=== PATIENT | male | born 1980 | race African-American/Black ===

== ENCOUNTER 2021-01-28 12:31 | Emergency (ER) | payer OTHER ==
[~2021-01-28] VITALS: Ht 182.9 cm; Wt 82.6 kg
--- NOTE | 2021-01-28 14:06 | REP ---
INDICATION: swelling/pain. COMPARISON: None. TECHNIQUE: Multiple ultrasonographic images of the deep venous structures of the left thigh were obtained from the common femoral vein to the popliteal vein along with Doppler interrogation and color flow Doppler images. FINDINGS: There is no abnormal echogenic material seen within any of the visualized deep venous structures that would suggest acute thrombosis. Coaptation is unremarkable throughout. Doppler interrogation shows an expected response to respiratory variability and augmentation. The color flow images show what appears to be a normal vascular pattern throughout. In the posterior popliteal fossa there is an 8.2 x 1.4 x 2 point 9 cm sized mixed echo structure IMPRESSION: There is no ultrasonographic evidence of deep venous thrombosis involving any of the visualized deep venous structures of the left thigh, as described above. 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 <Electronically signed by Abdiaziz Bolanos > 01/28/21 [id number]
[2021-01-28 14:17] VITALS: BP 131/89
== END 2021-01-28 14:19 | disposition home or self-care (01) ==
LOC: M ED 12:31
DX: M71.22 Synovial cyst of popliteal space [Baker], left knee (principal); F17.210 Nicotine dependence, cigarettes, uncomplicated

== ENCOUNTER 2021-02-05 17:54 | Inpatient (IN) | payer OTHER ==
[~2021-02-05] VITALS: Ht 182.9 cm; Wt 78.6 kg
[2021-02-05] MEDS ORDERED: NS 1,000 ML IV ONE (19:50)
[2021-02-05] MEDS ORDERED: MORPHINE 4 MG/ML 1ML VIAL/SYRINGE (J2270) IV ONE (19:55)
[2021-02-05] MEDS ORDERED: ONDANSETRON 4MG/2ML VIAL IV ONE (19:55)
[2021-02-05 20:55] LABS: BASO % 0.3 % (0.0-1.0); HEMATOCRIT 44.3 % (42.0-52.0); HEMOGLOBIN 14.4 g/dl (13.5-17.5); LYMPH # 0.7 10^3/uL (1.5-5.0); LYMPH % 6.5 % (24.0-44.0); MEAN CORPUSCULAR HEMOGLOBIN 29.4 pg (27.0-33.0); MEAN CORPUSCULAR HGB CONC 32.5 g/dl (32.0-36.5); MEAN CORPUSCULAR VOLUME 90.4 fl (80.0-96.0); MONO # 0.7 10^3/uL (0.0-0.8); MONO % 6.3 % (2.0-8.0); NEUTROPHILS # 9.3 10^3/uL (1.5-8.5); NEUTROPHILS % 86.5 % (36.0-66.0); PLATELET COUNT, AUTOMATED 269 10^3/uL (150-450); WHITE BLOOD COUNT 10.8 10^3/uL (4.0-10.0)
--- NOTE | 2021-02-05 21:00 | REPVR ---
PROCEDURE INFORMATION: Exam: XR Chest Exam date and time: 02/05/2021 8:29 PM Age: 40 years old Clinical indication: Other: Back pain TECHNIQUE: Imaging protocol: XR of the chest. Views: 1 view. COMPARISON: No relevant prior studies available. FINDINGS: Lungs: Unremarkable. No consolidation. Pleural spaces: Unremarkable. No pleural effusion. No pneumothorax. Heart/Mediastinum: Unremarkable. No cardiomegaly. Bones/joints: Unremarkable. IMPRESSION: No acute findings. Electronically signed by: Larry Heaton On 02/05/2021 21:00:33 PM
--- NOTE | 2021-02-05 21:03 | REPVR ---
PROCEDURE INFORMATION: Exam: CT Abdomen And Pelvis Without Contrast Exam date and time: 02/05/2021 8:32 PM Age: 40 years old Clinical indication: Abdominal pain; Additional info: Diffuse back pain, L flank pain, lumbar vertebral ttp TECHNIQUE: Imaging protocol: Computed tomography of the abdomen and pelvis without contrast. Radiation optimization: All CT scans at this facility use at least one of these dose optimization techniques: automated exposure control; mA and/or kV adjustment per patient size (includes targeted exams where dose is matched to clinical indication); or iterative reconstruction. COMPARISON: No relevant prior studies available. FINDINGS: Liver: There is a diffuse decrease in hepatic parenchymal density, consistent with steatosis. Hepatomegaly. Acute steatohepatitis not excluded. Gallbladder and bile ducts: Sludge filled gallbladder. Pancreas: There is peripancreatic inflammatory stranding and fluid, consistent with acute pancreatitis. Spleen: Normal. No splenomegaly. Adrenal glands: Normal. No mass. Kidneys and ureters: Normal. No hydronephrosis. Stomach and bowel: Unremarkable. No obstruction. No mucosal thickening. Appendix: No evidence of appendicitis. Intraperitoneal space: Unremarkable. No free air. No significant fluid collection. Vasculature: Unremarkable. No abdominal aortic aneurysm. Lymph nodes: Unremarkable. No enlarged lymph nodes. Urinary bladder: Unremarkable as visualized. Reproductive: The prostate gland demonstrates moderate hyperplasia. Bones/joints: Unremarkable. No acute fracture. Soft tissues: There is a small umbilical hernia. There is no evidence of incarceration. IMPRESSION: 1. There is a diffuse decrease in hepatic parenchymal density, consistent with steatosis. Hepatomegaly. Acute steatohepatitis not excluded. 2. Sludge filled gallbladder. 3. There is peripancreatic inflammatory stranding and fluid, consistent with acute pancreatitis. 4. Moderate prostatic hyperplasia. Electronically signed by: Larry Heaton On 02/05/2021 21:03:12 PM
[2021-02-05 21:49] LABS: ALBUMIN 4.2 GM/DL (3.2-5.2); ALT/SGPT 86 U/L (12-78); BILIRUBIN,DIRECT 0.3 MG/DL (0.0-0.2); BLOOD UREA NITROGEN 9 MG/DL (7-18); CARBON DIOXIDE LEVEL 29 MEQ/L (21-32); CHLORIDE LEVEL 105 MEQ/L (98-107); CK-MB VALUE MASS 1.2 NG/ML (<3.6); CPK CREATINE PHOSPHOKINASE 206 U/L (39-308); CREATININE FOR GFR 0.81 MG/DL (0.70-1.30); ETHYL ALCOHOL (ETHANOL) 0.005 % (0.000-0.010); GLOMERULAR FILTRATION RATE > 60.0 (>60); GLUCOSE, FASTING 99 MG/DL (70-100); LIPASE 988 U/L (73-393); MB/CK RELATIVE INDEX 0.58 (< OR =4); POTASSIUM SERUM 4.3 MEQ/L (3.5-5.1); SODIUM LEVEL 143 MEQ/L (136-145); TROPONIN I < 0.02 NG/ML (< 0.10)
--- NOTE | 2021-02-05 22:35 | REPVR ---
PROCEDURE INFORMATION: Exam: US Abdomen, Limited; Right Upper Quadrant Exam date and time: 02/05/2021 9:48 PM Age: 40 years old Clinical indication: Pain; Other: Back; Additional info: R/O gallstones TECHNIQUE: Imaging protocol: US abdomen. Real time ultrasound with image documentation. Limited exam focused on the right upper quadrant. COMPARISON: CT ABD PELVIS W/O CONTRAST 02/05/2021 7:58 PM FINDINGS: Liver: Mildly echogenic, suggesting fatty infiltration. Gallbladder: Minimal dependent sludge. No gallstones. No gallbladder wall thickening or pericholecystic fluid. Negative sonographic De La Cruz's sign, as per the performing flange machine operator. Common bile duct: No stones. No ductal dilatation. Pancreas: Suboptimally visualized. Right kidney: No mass. No definite stones. No hydronephrosis. IMPRESSION: No acute sonographic findings. Electronically signed by: Palmer Figueroa On 02/05/2021 22:35:27 PM
[2021-02-05] MEDS ORDERED: MAALOX 30 ML SUSP *UDC PO PRN (23:00)
[2021-02-05] MEDS ORDERED: ONDANSETRON 4MG/2ML VIAL IV PRN (23:00)
[2021-02-05] MEDS ORDERED: MOM 30ML SUSPENSION UDC PO PRN (23:00)
[2021-02-05] MEDS ORDERED: MORPHINE 4 MG/ML 1ML VIAL/SYRINGE (J2270) IV PRN (23:00)
--- NOTE | 2021-02-05 23:11 | HPEPDOC ---
[facility] Medical History & Physical Date of Admission February 05, 2021 Date of Service: February 05, 2021 Attending Physician: YONATHAN BELLO MD History and Physical CHIEF COMPLAINT: [40 y/o male with cc of back pain, n/v x1 day] HISTORY OF PRESENT ILLNESS: [This is a 40 y/o male with no pmh who presents to the ED with complaints of back pain, n/v and poor oral intake x1 day. Patient states that his symptoms started last night and he has had no relief. Patient states that he is unable to eat or drink much at this point because any time he does, he experiences vomiting. Patient states that his pain is only in his back and not in his abdomen. Patient states that he drinks alcohol approx 2 times a week and only drinks 2-3 glasses when he does drink. Patient denies chest pain, sob, fevers, chills, diarrhea, dark stool, dysuria, hematemesis, coffee ground emesis. Patient ct performed in the ED shows hepatomegaly with steatosis and pacreatitis.] PAST MEDICAL HISTORY: 1. [None PAST SURGICAL HISTORY: 1. [None SOCIAL HISTORY: Tobacco use:[Smoker] ETOH: [2-3 drinks 2 times a week] Illicit drug use: [Denies] FAMILY HISTORY: Reviewed - none pertinent ALLERGIES: Please see below. REVIEW OF SYSTEMS: CONSTITUTIONAL: [Admits to fatigue, malaise]. HEENT: [Denies URI sx]. CARDIOVASCULAR: [Denies chest pain, palpitations]. RESPIRATORY: [Denies sob]. GASTROINTESTINAL: [See HPI]. GENITOURINARY: [Denies dysuria]. SKIN: [Denies rash]. MUSCULOSKELETAL: [Denies acute joint pain]. NEUROLOGICAL: [Denies paresthesia]. ENDOCRINE: [Denies hx of DM]. HEMATOLOGIC/LYMPHATIC: [Denies easy bruising]. HOME MEDICATIONS: Please see below. PHYSICAL EXAMINATION: VITAL SIGNS: Please see below GENERAL APPEARANCE: [This is a 40 y/o male who appears fatigued. he is resting in bed in no apparent distress]. HEENT: [No mass or lesion. EOMI. No scleral icterus. Oral mucosa dry without erythema.]. CARDIOVASCULAR: [Regular rate, rhythm. No murmurs, rubs gallops]. LUNGS: [Good air flow b/l. No wheezing, rales, rhonchi.]. ABDOMEN: [Soft, nontender]. MUSCULOSKELETAL: [No joint deformity]. EXTREMITIES: [No joint deformity]. NEUROLOGICAL: [Speech clear. A+Ox3. No focal deficits]. PSYCHIATRIC: [Mood and affect appear appropriate.]. LABORATORY DATA: See below. IMAGING: [CT Abd/pelvis: FINDINGS: Liver: There is a diffuse decrease in hepatic parenchymal density, consistent with steatosis. Hepatomegaly. Acute steatohepatitis not excluded. Gallbladder and bile ducts: Sludge filled gallbladder. Pancreas: There is peripancreatic inflammatory stranding and fluid, consistent with acute pancreatitis. Spleen: Normal. No splenomegaly. Adrenal glands: Normal. No mass. Kidneys and ureters: Normal. No hydronephrosis. Stomach and bowel: Unremarkable. No obstruction. No mucosal thickening. Appendix: No evidence of appendicitis. Intraperitoneal space: Unremarkable. No free air. No significant fluid collection. Vasculature: Unremarkable. No abdominal aortic aneurysm. Lymph nodes: Unremarkable. No enlarged lymph nodes. Urinary bladder: Unremarkable as visualized. Reproductive: The prostate gland demonstrates moderate hyperplasia. Bones/joints: Unremarkable. No acute fracture. Soft tissues: There is a small umbilical hernia. There is no evidence of incarceration. IMPRESSION: 1. There is a diffuse decrease in hepatic parenchymal density, consistent with steatosis. Hepatomegaly. Acute steatohepatitis not excluded. 2. Sludge filled gallbladder. 3. There is peripancreatic inflammatory stranding and fluid, consistent with acute pancreatitis. 4. Moderate prostatic hyperplasia. CXR: FINDINGS: Lungs: Unremarkable. No consolidation. Pleural spaces: Unremarkable. No pleural effusion. No pneumothorax. Heart/Mediastinum: Unremarkable. No cardiomegaly. Bones/joints: Unremarkable. IMPRESSION: No acute findings. Gallbladder US: FINDINGS: Liver: Mildly echogenic, suggesting fatty infiltration. Gallbladder: Minimal dependent sludge. No gallstones. No gallbladder wall thickening or pericholecystic fluid. Negative sonographic De La Cruz's sign, as per the performing plunger scoop operator. Common bile duct: No stones. No ductal dilatation. Pancreas: Suboptimally visualized. Right kidney: No mass. No definite stones. No hydronephrosis. IMPRESSION: No acute sonographic findings. ] MICROBIOLOGY: Please see below. ASSESSMENT: [This is a 40 y/o male with no pmh who presents to the ED with complaints of back pain, n/v and poor oral intake x1 day. Patient found to have pancreatitis and hepatomegaly upon workup in our ed. ]. . PLAN: 1. [Pancreatitis - Unclear etiology. Possibly alcohol use vs. idiopathic - Clear liquid diet as patient says he is able to tolerate small sips of water - Begin IVF with lr at 150/hr - Morphine for pain, zofran for nausea - Admit to med surg for management 2. Hepatic steatosis/transaminitis - Unclear etiology. Possibly alcoholic liver disease - ALT: AST is about 1.5:1 - Will order hepatitis panel, ggt, neeru, anti smooth muscle ab - Will trend liver function 3. Questionable alcohol use - Patient has many signs of alcohol use, but only admits to mild-moderate use - Will begin CIWA protocol and monitor DVT prophylaxis - Teds and SCDs]. Vital Signs Vital Signs Date Time Temp Pulse Resp B/P (MAP) Pulse Ox O2 Delivery O2 Flow Rate FiO2 02/05/21 21:15 18 02/05/21 20:26 98.2 71 148/96 (113) 100 Room Air Laboratory Data Labs 24H Laboratory Tests 2 02/05/21 20:28: Immature Granulocyte % (Auto) 0.4, Neutrophils (%) (Auto) 86.5H, Lymphocytes (%) (Auto) 6.5L, Monocytes (%) (Auto) 6.3, Eosinophils (%) (Auto) 0.0, Basophils (%) (Auto) 0.3, Neutrophils # (Auto) 9.3H, Lymphocytes # (Auto) 0.7L, Monocytes # (Auto) 0.7, Eosinophils # (Auto) 0.0, Basophils # (Auto) 0.0, Nucleated Red Blood Cells % (auto) 0.0, Urine Color YELLOW, Urine Appearance CLEAR, Urine pH 7.0, Urine Specific Nelson 1.027, Urine Protein 2+H, Urine Glucose (UA) NEGATIVE, Urine Ketones 2+H, Urine Blood NEGATIVE, Urine Nitrite NEGATIVE, Urine Bilirubin NEGATIVE, Urine Urobilinogen 2.0H, Urine Leukocyte Esterase NEGATIVE, Urine WBC (Auto) 4H, Urine RBC (Auto) 2, Urine Hyaline Casts (Auto) 0, Urine Bacteria (Auto) NEGATIVE, Urine Squamous Epithelial Cells 1, Urine Transitional Epithelial Cells <1, Urine Mucus (Auto) SMALL, Urine Sperm (Auto) , Anion Gap 9, Glomerular Filtration Rate > 60.0, Calcium Level 9.0, Total Bilirubin 1.0, Direct Bilirubin 0.3H, Aspartate Amino Transf (AST/SGOT) 54H, Alanine Aminotransferase (ALT/SGPT) 86H, Alkaline Phosphatase 109, Total Creatine Kinase 206, Creatine Kinase MB 1.2, Creatine Kinase MB Relative Index 0.58, Troponin I < 0.02, Total Protein 8.0, Albumin 4.2, Albumin/Globulin Ratio 1.1, Lipase 988H, Ethyl Alcohol Level 0.005 02/05/21 22:44: CBC/BMP Laboratory Tests 02/05/21 20:28 Microbiology Microbiology 02/05/21 Respiratory Virus Panel (PCR) ([facility]), Received Pending Home Medications No Active Prescriptions or Reported Meds Allergies Coded Allergies: No Known Allergies (Unverified , 01/28/21) A-FIB/CHADSVASC A-FIB History Current/History of A-Fib/PAF?: No Attending Note Attending Note time of service 1103 pm is a 40 yr old Mwho presented w c /o back and flank pain associated w vomiting and will be admitted for acute pancreatitis (meets 3/3 of the [place] criteria to confirm the diagnosis). In addition to treating the pancreatitis we will request smoking cessation education. He has a tremor of unclear cause; he will need to be referred to a Neurologist on an out patient basis to confirm whether it is an essential tremor and whether he is a candidate to start propranolol or primidone. rest per TITUS Mcrae's H&P LOUISE MCRAE February 05, 2021 23:11 YONATHAN BELLO MD February 06, 2021 00:22
[2021-02-05] MEDS ORDERED: LORazepam 2 MG TAB PO PRN (23:15)
[2021-02-05 23:23] LABS: AMPHETAMINES LEVEL URINE NEGATIVE (NEGATIVE); BARBITURATES URINE NEGATIVE (NEGATIVE); BENZODIAZEPINES URINE NEGATIVE (NEGATIVE); CANNABINOIDS URINE NEGATIVE (NEGATIVE); COCAINE METABOLITE URINE NEGATIVE (NEGATIVE); METHADONE URINE NEGATIVE (NEGATIVE); OPIATES URINE POSITIVE (NEGATIVE); PHENCYCLIDINE URINE NEGATIVE (NEGATIVE)
[2021-02-05] MEDS: LR 1,000 ML IV SCH (23:45)
[2021-02-06] VITALS (7 sets, daily range): BP systolic 128–174; BP diastolic 64–90
[2021-02-06] MEDS: LR 1,000 ML IV SCH ×3 (05:40→16:30)
[2021-02-06 05:52] LABS: HEMATOCRIT 41.3 % (42.0-52.0); HEMOGLOBIN 13.5 g/dl (13.5-17.5); MEAN CORPUSCULAR HEMOGLOBIN 29.7 pg (27.0-33.0); MEAN CORPUSCULAR HGB CONC 32.7 g/dl (32.0-36.5); MEAN CORPUSCULAR VOLUME 90.8 fl (80.0-96.0); PLATELET COUNT, AUTOMATED 228 10^3/uL (150-450); RED BLOOD COUNT 4.55 10^6/uL (4.30-6.10); WHITE BLOOD COUNT 8.4 10^3/uL (4.0-10.0)
[2021-02-06 06:19] LABS: ALBUMIN 3.7 GM/DL (3.2-5.2); ALT/SGPT 67 U/L (12-78); BILIRUBIN,TOTAL 1.4 MG/DL (0.2-1.0); BLOOD UREA NITROGEN 10 MG/DL (7-18); CALCIUM LEVEL 8.6 MG/DL (8.5-10.1); CARBON DIOXIDE LEVEL 28 MEQ/L (21-32); CHLORIDE LEVEL 106 MEQ/L (98-107); CK-MB VALUE MASS < 1.0 NG/ML (<3.6); CPK CREATINE PHOSPHOKINASE 168 U/L (39-308); CREATININE FOR GFR 0.78 MG/DL (0.70-1.30); GLOMERULAR FILTRATION RATE > 60.0 (>60); GLUCOSE, FASTING 96 MG/DL (70-100); LIPASE 555 U/L (73-393); MAGNESIUM LEVEL 1.6 MG/DL (1.8-2.4); POTASSIUM SERUM 3.9 MEQ/L (3.5-5.1); SODIUM LEVEL 142 MEQ/L (136-145); TOTAL PROTEIN 7.3 GM/DL (6.4-8.2); TROPONIN I < 0.02 NG/ML (< 0.10)
[2021-02-06] MEDS ORDERED: MAG SULF 1GM/100ML (MAG RUN) 1 GM in IV 1 EA IV ONE (06:55)
[2021-02-06] MEDS: THIAMINE 100 MG TAB PO SCH ×2 (08:13→20:17)
[2021-02-06] MEDS: FOLIC ACID 1 MG TAB PO SCH (08:13)
[2021-02-06] MEDS: MULTIVITAMINS/MINERALS THERAP 1 TAB PO SCH (08:13)
[2021-02-06] MEDS: DOCUSATE SODIUM 100MG CAPSULE PO SCH ×2 (08:13→20:16)
--- NOTE | 2021-02-06 09:49 | IPNPDOC ---
Text Note Date of Service The patient was seen on 02/06/21. NOTE Subjective: Patient seen and examined at bedside. No acute overnight events reported. Patient voices no new medical complaints. Still notes abdominal pain but feels this is improving . Objective: General: NAD, lying comfortably in bed HEENT: NC/AT, EOMI Lungs; CTA B/L Heart: +S1S2, RRR Abd: soft, NT, +BS Ext: no edema A/P: 40 y/o male who denies any PMHx, presents to the ED with complaints of back pain, n/v and poor oral intake x1 day. Patient found to have pancreatitis and hepatomegaly upon workup in ED. #Pancreatitis - Unclear etiology. Possibly alcohol use vs. idiopathic - Clear liquid diet - Continue IVF with lr at 150/hr - Morphine for pain, zofran for nausea #Hepatic steatosis/transaminitis - Unclear etiology - LFT's improving - hepatitis panel pending, further workup unrevealing - Will trend liver function #Questionable alcohol use - Will begin CIWA protocol and monitor #DVT prophylaxis - Teds and SCDs Dispo: extensive discussion with Karli, who states he does consume alcohol daily, with a family history of alcohol abuse. VS,Fishbone, I+O VS, Fishbone, I+O Laboratory Tests 02/05/21 20:28 02/06/21 05:36 Vital Signs Date Time Temp Pulse Resp B/P (MAP) Pulse Ox O2 Delivery O2 Flow Rate FiO2 02/06/21 05:57 98.9 82 18 128/64 (85) 99 Room Air I&O- Last 24 Hours up to 6 AM 02/06/21 06:00 Intake Total 1450 ml Balance 1450 ml NILE STEEL MD February 06, 2021 09:49
[2021-02-06 10:12] LABS: HEPATITIS B SURFACE ANTIGEN NEGATIVE (NEGATIVE)
[2021-02-06 10:39] LABS: HEPATITIS B CORE ANTIBODY IGM NEGATIVE (NEGATIVE)
[2021-02-06 10:41] LABS: HEPATITIS A ANTIBODY IGM NEGATIVE (NEGATIVE)
--- NOTE | 2021-02-06 13:28 | ECGEPIP ---
[facility] - ED Test Date: 2021-02-05 Pat Name: MARYANN FUNES Department: Room: [place] [address] Gender: Male Presiding Judge: raven : [id number] Requested By: CLEMENTE Escobar PA-C Order Number: [id number] Reading MD: Merle Romero Measurements Intervals Jackson Rate: 78 P: 72 MS: 180 QRS: 72 QRSD: 94 T: -17 QT: 424 QTc: 483 Interpretive Statements Normal sinus rhythm Minimal voltage criteria for LVH, may be normal variant ( Sokolow-Bates ) T wave abnormality, consider inferolateral ischemia Prolonged QT clinical correlation no prior Electronically Signed on 02-06-2021 13:28:05 EDT by Merle Romero
[2021-02-06 13:45] LABS: CK-MB VALUE MASS < 1.0 NG/ML (<3.6); CPK CREATINE PHOSPHOKINASE 160 U/L (39-308); MB/CK RELATIVE INDEX 0.62 (< OR =4); TROPONIN I < 0.02 NG/ML (< 0.10)
[2021-02-06 21:58] LABS: CK-MB VALUE MASS < 1.0 NG/ML (<3.6); CPK CREATINE PHOSPHOKINASE 135 U/L (39-308); MB/CK RELATIVE INDEX 0.74 (< OR =4); TROPONIN I < 0.02 NG/ML (< 0.10)
[2021-02-07] MEDS: LR 1,000 ML IV SCH ×2 (01:59→11:40)
[2021-02-07 06:00] VITALS: BP 136/90
[2021-02-07 06:04] LABS: HEMATOCRIT 39.5 % (42.0-52.0); HEMOGLOBIN 12.9 g/dl (13.5-17.5); MEAN CORPUSCULAR HEMOGLOBIN 29.8 pg (27.0-33.0); MEAN CORPUSCULAR HGB CONC 32.7 g/dl (32.0-36.5); MEAN CORPUSCULAR VOLUME 91.2 fl (80.0-96.0); PLATELET COUNT, AUTOMATED 209 10^3/uL (150-450); RED BLOOD COUNT 4.33 10^6/uL (4.30-6.10); WHITE BLOOD COUNT 8.2 10^3/uL (4.0-10.0)
[2021-02-07 06:34] LABS: ALBUMIN 3.3 GM/DL (3.2-5.2); ALT/SGPT 51 U/L (12-78); BILIRUBIN,TOTAL 1.2 MG/DL (0.2-1.0); BLOOD UREA NITROGEN 7 MG/DL (7-18); CALCIUM LEVEL 8.4 MG/DL (8.5-10.1); CARBON DIOXIDE LEVEL 27 MEQ/L (21-32); CHLORIDE LEVEL 103 MEQ/L (98-107); CREATININE FOR GFR 0.68 MG/DL (0.70-1.30); GLOMERULAR FILTRATION RATE > 60.0 (>60); GLUCOSE, FASTING 82 MG/DL (70-100); LIPASE 151 U/L (73-393); MAGNESIUM LEVEL 1.8 MG/DL (1.8-2.4); POTASSIUM SERUM 3.6 MEQ/L (3.5-5.1); SODIUM LEVEL 136 MEQ/L (136-145); TOTAL PROTEIN 6.8 GM/DL (6.4-8.2)
[2021-02-07] MEDS: MULTIVITAMINS/MINERALS THERAP 1 TAB PO SCH (08:55)
[2021-02-07] MEDS: DOCUSATE SODIUM 100MG CAPSULE PO SCH (08:55)
[2021-02-07] MEDS: THIAMINE 100 MG TAB PO SCH (08:55)
[2021-02-07] MEDS: FOLIC ACID 1 MG TAB PO SCH (08:55)
[2021-02-07 09:20] LABS: CHOLESTEROL LEVEL 132 MG/DL (<200); HDL CHOLESTEROL 65 MG/DL (>40); LDL CHOLESTEROL 50 MG/DL (<100); NON-HDL-C 67 MG/DL; TRIGLYCERIDES LEVEL 83 MG/DL (<150)
[2021-02-07] MEDS ORDERED: THIA100TA PO (11:36)
[2021-02-07] MEDS ORDERED: VITMTA PO (11:36)
[2021-02-07] MEDS ORDERED: FOLI1TAB11 PO (11:36)
[2021-02-07 14:00] VITALS: BP 140/90
[2021-02-07 16:11] LABS: ANTI-SMOOTH MUSCLE ANTIBODY 8 Units (0-19); ANTINUCLEAR ANTIBODIES DIRECT Negative (Negative)
--- NOTE | 2021-02-07 16:36 | DS.PDOC ---
Discharge Summary General Date of Admission February 05, 2021 at 22:58 Date of Discharge 02/07/21 Discharge Summary PROCEDURES PERFORMED DURING STAY: [None]. ADMITTING/DISCHARGE DIAGNOSES: 1. Acute pancreatitis COMPLICATIONS/CHIEF COMPLAINT: Acute Pancreatitis,Hepatic Steatosis. HISTORY OF PRESENT ILLNESS: From admitting providers H&P: 40 y/o male with no pmh who presents to the ED with complaints of back pain, n/v and poor oral intake x1 day. Patient states that his symptoms started last night and he has had no relief. Patient states that he is unable to eat or drink much at this point because any time he does, he experiences vomiting. Patient states that his pain is only in his back and not in his abdomen. Patient states that he drinks alcohol approx 2 times a week and only drinks 2-3 glasses when he does drink. Patient denies chest pain, sob, fevers, chills, diarrhea, dark stool, dysuria, hematemesis, coffee ground emesis. HOSPITAL COURSE: During patient's hospital stay initially he was made NPO, slowly he was able to tolerate a clear liquid diet and before discharge he tolerated a regular diet at the time of discharge he has no nausea or vomiting and no abdominal pain. During his hospitalization he received IV fluids morphine for pain and Zofran for nausea. He was noted to have transaminitis and hepatic stoatosis, appetite is workup was negative and his LFTs improved. He admitted to me and discharged he does drink alcohol heavily and I counseled him on quitting. I discussed with him that his episode of pancreatitis was likely secondary to his alcohol abuse. DISCHARGE MEDICATIONS: Please see below. ALLERGIES: Please see below. PHYSICAL EXAMINATION ON DISCHARGE: VITAL SIGNS: Please see below. At time of discharge today patient denied any abdominal pain or nausea or vomiti ng use able to tolerate his regular diet lunch without any issues. Constitutional: Awake and alert, in no apparent distress ENT: Sclera are clear. Mucosa is moist. Respiratory: Lungs CTA bilaterally. No respiratory distress. Cardiovascular: RRR S1 and S2 are normal, no murmur Gastrointestinal: Abdomen is soft, non distended, non tender, BS present. Musculoskeletal: No lower extremity edema Neurologic: No focal neurological deficit. Mental Status: A&O x3, normal affect LABORATORY DATA: Please see below. IMAGING: See chart PROGNOSIS: Fair ACTIVITY: [As tolerated]. DIET: Regular diet DISPOSITION: 01 Home, Self-Care. DISCHARGE INSTRUCTIONS: Please follow up with your primary care physician within 1 week from discharge. If you do not have one, please follow up with us to schedule an appointment. Please keep all of your follow up appointments. Please call central to book your appointments with hospital specialists. Please take all your medications as prescribed. Please call/come to Clinic or go to the Emergency Department if - Temp >101, intractable Nausea/Vomiting, Diarrhea, Mouth sores, Headaches, Altered mental status, Seizures, sudden onset of swelling, bleeding, shortness of breath or chest pain. Stop drinking alcohol ITEMS TO FOLLOWUP ON ON OUTPATIENT: Follow-up with PCP within 5 days of discharge DISCHARGE CONDITION: [Stable]. TIME SPENT ON DISCHARGE: 35 minutes. Vital Signs/I&Os Vital Signs Date Time Temp Pulse Resp B/P (MAP) Pulse Ox O2 Delivery O2 Flow Rate FiO2 02/07/21 14:00 98.0 70 15 140/90 (107) 99 Room Air I&O- Last 24 Hours up to 6 AM 02/07/21 06:00 Intake Total 2970 ml Balance 2970 ml Laboratory Data Labs 24H Laboratory Tests 2 02/06/21 21:10: Total Creatine Kinase 135, Creatine Kinase MB < 1.0, Creatine Kinase MB Relative Index 0.74, Troponin I < 0.02 02/07/21 05:26: Nucleated Red Blood Cells % (auto) 0.0, Anion Gap 6L, Glomerular Filtration Rate > 60.0, Calcium Level 8.4L, Magnesium Level 1.8, Total Bilirubin 1.2H, Aspartate Amino Transf (AST/SGOT) 33, Alanine Aminotransferase (ALT/SGPT) 51, Alkaline Phosphatase 85, Total Protein 6.8, Albumin 3.3, Albumin/Globulin Ratio 0.9, Triglycerides Level 83, Total Cholesterol 132, LDL Cholesterol 50, Non-HDL Cholesterol (LDL + VLDL) 67, Total HDL Cholesterol 65, Cholesterol/HDL Ratio 2.030, Lipase 151 CBC/BMP Laboratory Tests 02/07/21 05:26 Microbiology Microbiology 02/05/21 Respiratory Virus Panel (PCR) ([facility]) - Final, Complete Discharge Medications Scheduled Folic Acid (Folic Acid) 1 Mg Tablet, 1 MG PO DAILY Multivitamins (Thera M Plus Tablet) 1 Each Tablet, 1 TAB PO DAILY Thiamine Hcl (Vitamin B-1) 100 Mg Tablet, 100 MG PO BID Allergies Coded Allergies: No Known Allergies (Unverified , 01/28/21) LIZY BUSTOS MD February 07, 2021 16:36
== END 2021-02-07 15:17 | disposition home or self-care (01) | DRG 440 ==
LOC: M ED 17:54 → M ED INP 22:58 → ENRESERV 02-06 00:59 → M MSPAV 02-06 01:48
PROVIDERS: ADMIT Internal Medicine; ATTEND Family Medicine
DX: K85.90 Acute pancreatitis without necrosis or infection, unspecified (principal); F17.200 Nicotine dependence, unspecified, uncomplicated; K76.0 Fatty (change of) liver, not elsewhere classified